=== PATIENT | female | born 1985 | race Caucasian/White ===

== ENCOUNTER 2018-03-13 09:02 | Inpatient (IN) | payer BC ==
[2018-03-13] MEDS ORDERED: PHENERGAN INJ 25 MG IV PRN ×3 (09:12→14:41)
[2018-03-13] MEDS ORDERED: PITOCIN IVP ONE (09:12)
[2018-03-13] MEDS ORDERED: D5LR 1L W PITOCIN 10 UNITS/L 10 UNITS/1,000 ML BAG IV PRN (09:12)
[2018-03-13] MEDS ORDERED: DILAUDID INJ IVP PRN (09:12)
[2018-03-13] MEDS ORDERED: NUBAIN INJ 200 MG VIAL MULTIDOSE IVP PRN (09:12)
[2018-03-13] MEDS ORDERED: REGLAN INJ 10 MG VIAL IVP PRN ×2 (09:12→14:41)
[2018-03-13] MEDS ORDERED: LR 1000 ML IV 1,000 ML IV ONE ×2 (09:16→09:30)
[2018-03-13] MEDS ORDERED: NAROPIN EPIDURAL 0.2% + FENTANYL 90MCG 60 ML EPI ONE (09:17)
[2018-03-13] MEDS ORDERED: FENTANYL INJ 100 mcg ONE (09:17)
[2018-03-13] MEDS ORDERED: D5LR 1L W PITOCIN 10 UNITS/L 10 UNITS/1,000 ML BAG IV ONE (09:17)
[2018-03-13] MEDS ORDERED: AMPICILLIN VIAL 2 GM ONE (09:17)
[2018-03-13] MEDS ORDERED: D5 1/2 NS 1L W PITOCIN 20 UNITS/L 20 UNITS/1,000 ML BAG IV ONE (09:17)
[2018-03-13] MEDS ORDERED: NS 100 ML IV 100 ML IV ONE (09:17)
[2018-03-13] MEDS ORDERED: NUBAIN INJ 10 ONE (09:18)
[2018-03-13] MEDS ORDERED: D5 1/2 NS 1000 ML 1,000 ML IV ONE (09:18)
[2018-03-13] MEDS ORDERED: PITOCIN ONE (09:18)
[2018-03-13] MEDS ORDERED: FENTANYL INJ 100 mcg EPI ONE (09:30)
[2018-03-13] MEDS ORDERED: NAROPIN EPIDURAL 0.2% 60 ML with FENTANYL INJ 100 mcg 90 MCG IVP SCH ×2 (09:30)
[2018-03-13 09:39] LABS: BASOPHILS % (AUTO) 0.4 % (0.2-1.0); EOSINOPHILS # (AUTO) 0.1 x10^3/uL (0.0-0.2); EOSINOPHILS % (AUTO) 0.6 % (0.9-2.9); HEMATOCRIT 35.4 % (36.0-47.0); HEMOGLOBIN 12.1 g/dL (12.0-16.0); LYMPHOCYTES # (AUTO) 2.2 X10^3/uL (1.3-2.9); LYMPHOCYTES % (AUTO) 25.2 % (21.0-51.0); MEAN CORPUSCULAR HEMOGLOBIN 28.6 pg (27.0-34.0); MEAN CORPUSCULAR HGB CONC 34.1 g/dL (33.0-35.0); MEAN CORPUSCULAR VOLUME 83.8 fL (80.0-100.0); MEAN PLATELET VOLUME 10.7 fL (7.4-11.0); MONOCYTES # (AUTO) 0.7 x10^3/uL (0.3-0.8); MONOCYTES % (AUTO) 7.6 % (0.0-13.0); NEUTROPHILS # (AUTO) 5.7 x10^3/uL (2.2-4.8); NEUTROPHILS % (AUTO) 66.2 % (42.0-75.0); PLATELET COUNT 162 X10^3/uL (150.0-450.0); RED BLOOD COUNT 4.22 X10^6/uL (3.5-5.4); RED CELL DISTRIBUTION WIDTH 12.8 % (11.6-16.5); WHITE BLOOD COUNT 8.6 X10^3/uL (3.6-10.0)
[2018-03-13 09:45] LABS: AMNISURE ROM TEST THERE IS A RUPTURE (NO RUPTURE)
[2018-03-13 10:00] LABS: BLOOD UREA NITROGEN 10 mg/dL (7-18); CALCIUM 8.5 mg/dL (8.5-10.1); CARBON DIOXIDE 21.1 mmol/L (21-32); CHLORIDE 106 mmol/L (98-107); CREATININE 0.74 mg/dL (0.55-1.02); SODIUM 138 mmol/L (136-145); eGFR BLACK RACES > 60 (>60); eGFR NON BLACK RACES > 60 (>60)
[2018-03-13] MEDS ORDERED: D5 1/2 NS 1000 ML 1,000 ML IV SCH (10:00)
[2018-03-13] MEDS ORDERED: AMPICILLIN VIAL 2 GM 2 GM in NS 100 ML IV + SPIKE MINIBAG* 100 ML IV SCH (10:00)
--- NOTE | 2018-03-13 12:34 | DR.OB ---
OB Quick Note - Assessment/Plan Assessment/Plan: L&D 03/13/18 at 11:05am Ampicillin S-No complaint. O-Afebrile,VSS UGR=524 with good LTV, +accel, no decel CTX=q 2-3 min., strong by palpation CVX=7cm/100%/0/VTX FSE placed. A-IUP at 35 5/7 weeks in labor with SROM Unknown GBS P-Begin pitocin augmentation if needed. Cont. Ampicillin in labor F/U labs Anticipate
[2018-03-13] MEDS ORDERED: AMPICILLIN VIAL 1 GM 1 GM in NS 50 ML IV + SPIKE MINIBAG* 50 ML IV SCH (13:14)
--- NOTE | 2018-03-13 13:21 | DR.OB ---
OB Quick Note - Assessment/Plan Assessment/Plan: Delivery Note MANAGER STORY 03/13/18 at 1:15pm Patient complete and pushing. Head delivered over intact perineum. Nuchal cord x 1 reduced. Nose and mouth bulb suctioned. Body delivered over intact perineum. Cord clamped x 2 and cut. Infant handed to attendant. Cord sent for gases. Placenta delivered spontaneously / intact / 3 vessel cord. A second degree midline tear noted and repaired with 0-vicryl in usual fashion. No CVX tears noted. Viable female infant, VTX/OA, wt=6'10" and 9/9, stable to NBN. Mother stable to RR. TEE=246gu.
[2018-03-13] MEDS ORDERED: MOTRIN TAB 800 MG PO PRN (13:38)
[2018-03-13] MEDS ORDERED: D5 1/2 NS 1000 ML 1,000 ML with PITOCIN 20 UNITS IV SCH ×4 (14:00→22:00)
[2018-03-13] MEDS ORDERED: DERMOPLAST SPRAY TOP PRN (14:41)
[2018-03-13] MEDS ORDERED: ADACEL TDaP IM ONE ×2 (14:41→22:22)
[2018-03-13] MEDS ORDERED: AMBIEN PO PRN (14:41)
[2018-03-13] MEDS: ZANTAC PO SCH (20:41)
[2018-03-13] MEDS: MILK OF MAGNESIA PO PRN (20:42)
[2018-03-13] MEDS: MOTRIN TAB 800 MG PO PRN (20:42)
[2018-03-14 06:00] LABS: HEMATOCRIT 31.6 % (36.0-47.0); HEMOGLOBIN 10.9 g/dL (12.0-16.0)
[2018-03-14] MEDS: ZANTAC PO SCH ×2 (08:26→21:45)
[2018-03-14] MEDS: PRENATAL PLUS PO SCH ×2 (08:26)
[2018-03-14] MEDS: MOTRIN TAB 800 MG PO PRN ×2 (10:17→21:52)
[2018-03-14] MEDS: MILK OF MAGNESIA PO PRN (21:45)
[2018-03-15] MEDS: PRENATAL PLUS PO SCH (08:30)
[2018-03-15] MEDS: ZANTAC PO SCH ×2 (08:30→09:00)
[2018-03-15 14:32] VITALS: BP 129/88
== END 2018-03-15 14:20 | disposition home or self-care (01) | DRG 775 ==
LOC: LD 09:02 → MED/SURG 14:33
PROVIDERS: ADMIT Specialist; ATTEND Specialist
PROC: 10E0XZZ Delivery of Products of Conception, External Approach (ICD-10-PCS; principal; 2018-03-13)
PROC: 3E0234Z Introduction of Serum, Toxoid and Vaccine into Muscle, Percutaneous Approach (ICD-10-PCS; 2018-03-13)
PROC: 00HU33Z Insertion of Infusion Device into Spinal Canal, Percutaneous Approach (ICD-10-PCS; 2018-03-13)
PROC: 0KQM0ZZ Repair Perineum Muscle, Open Approach (ICD-10-PCS; 2018-03-13)
DX: O60.14X0 Preterm labor third trimester with preterm delivery third trimester, not applicable or unspecified (principal); Z37.0 Single live birth; O70.1 Second degree perineal laceration during delivery; O99.613 Diseases of the digestive system complicating pregnancy, third trimester; Z3A.35 35 weeks gestation of pregnancy; Z23 Encounter for immunization
CPT/HCPCS: 09167; 36415; 59409; 80048; 84112; 85014; 85018; 85025; 86592; 86850; 86900; 86901; A4216; A4222; S0197; J0290; J2300; J2590; J3010; J7042; J7120

== ENCOUNTER 2021-12-20 03:38 | Inpatient (IN) ==
[2021-12-20] MEDS ORDERED: D5 1/2 NS 1,000 ML 1,000 ML IV ONE ×2 (03:45→03:55)
[2021-12-20 03:52] VITALS: BMI 30.7
[2021-12-20 04:04] LABS: BILIRUBIN,URINE NEGATIVE (NEGATIVE); BLOOD/HEMOGLOBIN,URINE 2+ (NEGATIVE); GLUCOSE, URINE NEGATIVE (NEGATIVE); KETONES,URINE 1+ (NEGATIVE); LEUKOCYTE ESTERASE ,URINE NEGATIVE (NEGATIVE); NITRITES,URINE NEGATIVE (NEGATIVE); PROTEIN,URINE 2+ (NEGATIVE); UROBILINOGEN,URINE NORMAL (NORMAL)
[2021-12-20 04:04] LABS: AMNISURE ROM TEST THERE IS A RUPTURE (NO RUPTURE)
[2021-12-20 04:23] LABS: APPEARANCE,URINE CLEAR (CLEAR); COLOR,URINE YELLOW (YELLOW)
[2021-12-20 04:24] LABS: BASOPHILS # (AUTO) 0.1 X10^3/uL (0.0-0.1); BASOPHILS % (AUTO) 0.7 % (0.2-1.0); EOSINOPHILS # (AUTO) 0.1 x10^3/uL (0.0-0.2); EOSINOPHILS % (AUTO) 1.2 % (0.9-2.9); HEMATOCRIT 36.8 % (36.0-47.0); HEMOGLOBIN 12.6 g/dL (12.0-16.0); LYMPHOCYTES # (AUTO) 2.5 X10^3/uL (1.3-2.9); LYMPHOCYTES % (AUTO) 29.4 % (21.0-51.0); MEAN CORPUSCULAR HEMOGLOBIN 28.5 pg (27.0-34.0); MEAN CORPUSCULAR HGB CONC 34.3 g/dL (33.0-35.0); MEAN PLATELET VOLUME 10.1 fL (7.4-11.0); MONOCYTES # (AUTO) 0.5 x10^3/uL (0.3-0.8); MONOCYTES % (AUTO) 6.2 % (0.0-13.0); NEUTROPHILS # (AUTO) 5.2 x10^3/uL (2.2-4.8); NEUTROPHILS % (AUTO) 62.5 % (42.0-75.0); RED BLOOD COUNT 4.43 X10^6/uL (3.5-5.4); RED CELL DISTRIBUTION WIDTH 13.4 % (11.6-16.5); WHITE BLOOD COUNT 8.4 X10^3/uL (3.6-10.0)
[2021-12-20 04:29] LABS: BLOOD UREA NITROGEN 10 mg/dL (7-18); CALCIUM 9.9 mg/dL (8.5-10.1); CARBON DIOXIDE 23.1 mmol/L (21-32); CHLORIDE 103 mmol/L (98-107); CREATININE 0.65 mg/dL (0.55-1.02); SODIUM 137 mmol/L (136-145); eGFR NON BLACK RACES > 60 (>60)
[2021-12-20 04:43] LABS: BACTERIA,URINE TRACE /HPF (NEGATIVE); SQUAMOUS EPITHELIAL CELL,UR FEW /HPF (NEGATIVE)
[2021-12-20] MEDS ORDERED: D5 LR + PITOCIN 10 UNITS/L 10 UNITS/1,000 ML BAG IV PRN (04:49)
[2021-12-20] MEDS ORDERED: REGLAN INJ 10 MG VIAL IVP PRN (04:49)
[2021-12-20] MEDS ORDERED: D5 1/2 NS 1,000 ML 1,000 ML IV SCH (04:49)
[2021-12-20] MEDS ORDERED: PHENERGAN INJ 25 MG IM PRN ×2 (04:49→07:27)
[2021-12-20] MEDS ORDERED: PITOCIN IVP ONE (04:49)
[2021-12-20] MEDS ORDERED: PITOCIN ONE (04:58)
[2021-12-20] MEDS ORDERED: BETADINE SOLN ONE (04:58)
[2021-12-20] MEDS ORDERED: D5 1/2 NS 1,000 mL + PITOCIN 20 UNITS/L IV 20 UNITS/1,000 ML BAG IV ONE (04:59)
[2021-12-20] MEDS ORDERED: D5 LR + PITOCIN 10 UNITS/L 10 UNITS/1,000 ML BAG IV ONE (04:59)
[2021-12-20] MEDS ORDERED: FENTANYL VIAL INJ 100 mcg ONE ×2 (05:01→05:02)
[2021-12-20] MEDS ORDERED: LR 1,000 ML IV 1,000 ML IV ONE (05:01)
[2021-12-20] MEDS ORDERED: NAROPIN EPIDURAL 0.2% 100 ML ONE (05:02)
[2021-12-20] MEDS ORDERED: REGLAN INJ 10 MG VIAL ONE (05:36)
[2021-12-20] MEDS ORDERED: EPHEDRINE SULFATE INJ ONE (05:43)
[2021-12-20] MEDS ORDERED: ZOFRAN INJ 4 MG VIAL ONE (05:43)
[2021-12-20] MEDS ORDERED: XYLOCAINE 1 % (PLAIN) ONE (06:47)
[2021-12-20] MEDS: D5 1/2 NS 1,000 ML 1,000 ML with PITOCIN 20 UNITS IV SCH ×4 (07:00→17:56)
--- NOTE | 2021-12-20 07:25 | DR.OB ---
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 Head delivered over intact perineum. Nuchal cord x 1 reduced. Nose and mouth bulb suctioned. Body delivered over intact perineum. Cord clamped x 2 and cut. Infant handed to attendant. Cord sent for gases. Placenta delivered spontaneously / intact / 3 vessel cord. No CVX tears. A small midline second degree tear noted and repaired with 0-vicryl in usual fashion. A small periurethral tear noted but not hemostatic--repaired with a figure-of-8 stitch of 0-vicryl for hemostasis. Viable male , VTX/OA, wt=7'1" and 9/9, stable to NBN. Mother stable to NBN. QOF=115yb.
[2021-12-20] MEDS ORDERED: MOTRIN TAB 800 MG PO PRN (07:27)
[2021-12-20] MEDS ORDERED: ADACEL or BOOSTRIX TDaP VACCINE IM ONE (11:09)
[2021-12-20] MEDS ORDERED: DERMOPLAST PAIN RELIEF SPRAY TOP PRN (11:09)
[2021-12-20] MEDS ORDERED: AMBIEN PO PRN (11:09)
[2021-12-20] MEDS ORDERED: MILK OF MAGNESIA PO PRN (11:09)
[2021-12-20] MEDS ORDERED: TUMS PO PRN (17:40)
[2021-12-20] MEDS ORDERED: TUMS ONE (17:48)
[2021-12-20] MEDS: PRENATAL PLUS PO SCH (19:35)
[2021-12-21 05:15] LABS: HEMATOCRIT 30.9 % (36.0-47.0)
[2021-12-21 05:43] LABS: HEMOGLOBIN 10.6 g/dL (12.0-16.0)
[2021-12-21] MEDS: D5 1/2 NS 1,000 ML 1,000 ML with PITOCIN 20 UNITS IV SCH ×2 (08:06)
[2021-12-21] MEDS: PRENATAL PLUS PO SCH (08:13)
[2021-12-21] MEDS ORDERED: PREVACID PO SCH (09:00)
[2021-12-21] MEDS ORDERED: BETADINE SOLN ONE (12:26)
[2021-12-21 12:34] VITALS: BP 136/75
== END 2021-12-21 16:45 | disposition home or self-care (01) | DRG 805 ==
LOC: ER 03:38 → LD 04:49 → ICU 15:07
PROVIDERS: ADMIT Specialist; ATTEND Specialist